=== PATIENT | female | born 1990 | race Caucasian/White ===

== ENCOUNTER 2018-01-25 10:42 | Emergency (ER) | payer OTHER ==
[~2018-01-25] VITALS: Ht 172.7 cm; Wt 90.7 kg
[~2018-01-25 10:42] MED LIST: CODGUAEL PO; Cleocin HCl150 MG PO
[2018-01-25] MEDS ORDERED: KETO10 PO (12:00)
[2018-01-25] MEDS ORDERED: Crutch1 EACH MISC (12:06)
== END 2018-01-25 12:13 | disposition home or self-care (01) ==
LOC: ER 10:42
DX: S93.401A Sprain of unspecified ligament of right ankle, initial encounter (principal); F17.200 Nicotine dependence, unspecified, uncomplicated; Z88.0 Allergy status to penicillin; X58.XXXA Exposure to other specified factors, initial encounter
CPT/HCPCS: 73630; 99283-25

== ENCOUNTER → 2022-11-10 | Outpatient (CLI) | payer OTHER ==
[~2022-11-10] MED LIST changes: +Crutch1 EACH MISC; +KETO10 PO
[2022-11-10 13:57] LABS: Candida species (DNA Probe) Negative (NEGATIVE); G. vaginalis (DNA Probe) Negative (NEGATIVE); T. vaginalis (DNA Probe) Negative (NEGATIVE)
[2022-11-11 10:10] LABS: HBSAG SCREEN Negative (Negative); HCV ANTIBODY Non Reactive (Non Reactive)
[2022-11-11 10:37] LABS: HIV AB/P24 AG SCREEN Non Reactive (Non Reactive)
[2022-11-12 07:13] LABS: CHLAMYDIA TRACHOMATIS, NAA Negative (Negative); HPV 16 Negative (Negative); HPV 18 Negative (Negative); HPV OTHER HR TYPES Negative (Negative)
== END | disposition home or self-care (01) ==
LOC: LAB SHORT 11:28 → LAB 11:28
PROVIDERS: Advanced Practice Midwife
DX: Z01.419 Encounter for gynecological examination (general) (routine) without abnormal findings (principal); Z11.3 Encounter for screening for infections with a predominantly sexual mode of transmission; N76.0 Acute vaginitis
CPT/HCPCS: 36415; 86592; 86803; 87340; 87389; 87480; 87491; 87510; 87591; 87624; 87660; G0145

== ENCOUNTER 2023-07-10 19:55 | Emergency (ER) | payer OTHER ==
[~2023-07-10] VITALS: Ht 160 cm; Wt 74.8 kg
[2023-07-10 21:32] VITALS: BP 152/103
[2023-07-10] MEDS ORDERED: Ketorolac Tromethamine 15mg Vial IM ONE (21:45)
[2023-07-10] MEDS ORDERED: Lidocaine 4% 1 Patch TOP ONE (21:45)
[2023-07-10] MEDS ORDERED: ASPERFLEX1 EACH TOP (21:46)
== END 2023-07-10 21:50 | disposition home or self-care (01) ==
LOC: ER 19:55
DX: T14.90XA Injury, unspecified, initial encounter (principal); R51.9 Headache, unspecified; M54.2 Cervicalgia; F17.200 Nicotine dependence, unspecified, uncomplicated; V43.52XA Car driver injured in collision with other type car in traffic accident, initial encounter; Z88.0 Allergy status to penicillin
CPT/HCPCS: 70450; 72125; 96372; 99284-25; A9270; J1885

== ENCOUNTER 2023-11-19 18:11 | Emergency (ER) | payer OTHER ==
[~2023-11-19] VITALS: Ht 160 cm; Wt 79.4 kg
[~2023-11-19 18:11] MED LIST changes: +ASPERFLEX1 EACH TOP
[2023-11-19 18:26] VITALS: BP 153/101
[2023-11-19 19:53] LABS: Source, Urine Clean Catch
[2023-11-19 20:00] LABS: Appearance, Urine Clear (Clear); Bilirubin, Urine Neg (Neg); Blood, Urine Neg (Neg); Glucose Qualitative, Urine Neg (Neg); Ketones, Urine Neg (Neg); Leukocyte Esterase, Urine Neg (Neg); Nitrite, Urine Neg (Neg); Protein, Urine 2+ (Neg); Specific Gravity, Urine 1.005 (1.003-1.022); Urobilinogen, Urine NORM (Normal)
[2023-11-19 20:26] LABS: Color, Urine Pale Yellow (P-Yellow)
[2023-11-19 20:57] LABS: Bacteria Few /hpf; Red Blood Cells, Urine 0-2 /hpf (0-2); Squamous Epithelial Cells Few /hpf (Few); White Blood Cells, Urine 0-2 /hpf (0-5)
== END 2023-11-19 20:44 | disposition left against medical advice (07) ==
LOC: ER 18:11
PROVIDERS: Emergency Medicine
DX: Z53.21 Procedure and treatment not carried out due to patient leaving prior to being seen by health care provider (principal)
CPT/HCPCS: 81001; 81025

== ENCOUNTER 2024-05-14 00:21 | Emergency (ER) | payer OTHER ==
[~2024-05-14] VITALS: Ht 160 cm; Wt 84.8 kg
[2024-05-14 00:53] VITALS: BP 155/111
[2024-05-14] MEDS ORDERED: Amoxicillin/Clavulanate K 875 MG Tab PO ONE (03:15)
[2024-05-14] MEDS ORDERED: AMOCLA875 PO (04:50)
[2024-05-14] MEDS ORDERED: RX Prepack 6 Tabs Oxycodone 5mg UD ONE (04:50)
[2024-05-14] MEDS ORDERED: Diphth,Pertuss(Acell),Tet Vac 0.5 ML VIAL IM ONE (05:00)
== END 2024-05-14 05:17 | disposition home or self-care (01) ==
LOC: ER 00:21
DX: S62.635B Displaced fracture of distal phalanx of left ring finger, initial encounter for open fracture (principal); F17.200 Nicotine dependence, unspecified, uncomplicated; W22.09XA Striking against other stationary object, initial encounter; Z79.899 Other long term (current) drug therapy; Z88.0 Allergy status to penicillin
CPT/HCPCS: 12002; 73130; 90471; 90715; 99283-25; A9270

== ENCOUNTER 2024-07-31 07:45 | Day surgery (SDC) | payer OTHER ==
[~2024-07-31] VITALS: Ht 160 cm; Wt 81.8 kg
[~2024-07-31 07:45] MED LIST changes: +AMOCLA875 PO; +CeFAZolin Sodium 2,000 MG VIAL ONE
[2024-07-31] MEDS ORDERED: Adipex-P37.5 M1 PO (08:23)
[2024-07-31] MEDS ORDERED: Lactated Ringer's 1,000 ML IV ONE (08:30)
[2024-07-31] MEDS ORDERED: propofoL 20 ML IV ONE (08:41)
[2024-07-31] MEDS ORDERED: FentaNYL Citrate 50 MCG/ML 2 ML Injection ONE ×2 (08:42→08:45)
[2024-07-31] MEDS ORDERED: Lidocaine HCl 2% 10 ML SDA ONE (08:59)
[2024-07-31] MEDS ORDERED: Lidocaine HCl 1% 20 ML MDV INJ ONE ×2 (09:07→09:12)
[2024-07-31] MEDS ORDERED: Ondansetron HCl 2 MG / ML 2ML Vial ONE (09:20)
[2024-07-31] MEDS ORDERED: Dexamethasone Sod Phos 10 MG/ML 1ML VIAL ONE (09:20)
[2024-07-31 09:36] VITALS: BP 136/93
--- NOTE | 2024-07-31 09:45 | NUR ---
07/31/24 0945 Janiya Damon SIGNIFICANT OTHER BROUGHT TO BEDSIDE
== END 2024-07-31 10:04 | disposition home or self-care (01) ==
LOC: ORSCSDS 07:45
PROVIDERS: Orthopaedic Surgery
PROC: 0PBV0ZX Excision of Left Finger Phalanx, Open Approach, Diagnostic (ICD-10-PCS; principal; 2024-07-31 11:15)
DX: S62.639A Displaced fracture of distal phalanx of unspecified finger, initial encounter for closed fracture (principal); F17.210 Nicotine dependence, cigarettes, uncomplicated; E66.9 Obesity, unspecified; Z68.31 Body mass index [BMI] 31.0-31.9, adult
CPT/HCPCS: J0690; J1100; J2003; J2405; J2704; J3010

== ENCOUNTER 2024-10-16 02:45 | Emergency (ER) | payer OTHER ==
[~2024-10-16] VITALS: Ht 160 cm; Wt 80.7 kg
[~2024-10-16 02:45] MED LIST changes: +Adipex-P37.5 M1 PO; -CeFAZolin Sodium 2,000 MG VIAL ONE
[2024-10-16 02:59] VITALS: BP 149/111
[2024-10-16] MEDS ORDERED: NS 1,000 ML IV SCH (03:40)
[2024-10-16] MEDS ORDERED: Morphine Sulfate 4 MG/1 ML Injection IV ONE (03:40)
[2024-10-16] MEDS ORDERED: Lidocaine 2% Viscous Soln 100 ML BTL PO ONE (04:00)
[2024-10-16] MEDS ORDERED: Lidocaine 2% Viscous Soln 15 ML UDC PO ONE (04:05)
[2024-10-16] MEDS ORDERED: Ketorolac Tromethamine 30mg Vial IV ONE (05:30)
[2024-10-16] MEDS ORDERED: CYCL10 PO (05:59)
[2024-10-16] MEDS ORDERED: Dexamethasone Sod Phos 10 MG/ML 1ML VIAL IV ONE (06:00)
== END 2024-10-16 06:17 | disposition home or self-care (01) ==
LOC: ER 02:45
DX: T71.193A Asphyxiation due to mechanical threat to breathing due to other causes, assault, initial encounter (principal); S62.666A Nondisplaced fracture of distal phalanx of right little finger, initial encounter for closed fracture; S16.1XXA Strain of muscle, fascia and tendon at neck level, initial encounter; S00.83XA Contusion of other part of head, initial encounter; F17.200 Nicotine dependence, unspecified, uncomplicated; Z88.0 Allergy status to penicillin; Z79.899 Other long term (current) drug therapy; Y04.8XXA Assault by other bodily force, initial encounter
CPT/HCPCS: 70450; 70498; 72125; 73140; 96374-59; 96375; 99284-25; A9270; J1100; J1885; J7030; Q9967

== ENCOUNTER 2024-12-11 12:50 | Day surgery (SDC) | payer OTHER ==
[~2024-12-11] VITALS: Ht 160 cm; Wt 81.5 kg
[~2024-12-11 12:50] MED LIST changes: +CYCL10 PO
[2024-12-11] MEDS ORDERED: ZOLOFT50 MG PO (13:08)
[2024-12-11] MEDS ORDERED: TRAZ50 PO (13:08)
[2024-12-11] MEDS ORDERED: ALPRAZOLAM110 PO (13:09)
[2024-12-11] MEDS ORDERED: OMEP20ER PO (13:09)
[2024-12-11] MEDS ORDERED: MONDOXYNE NL100 MG PO (13:09)
[2024-12-11] MEDS ORDERED: CeFAZolin Sodium 2,000 MG VIAL ONE ×2 (13:18→14:03)
--- NOTE | 2024-12-11 13:25 | NUR ---
12/11/24 1325 Georgina Valadez CALL LIGHT WITHIN REACH.
[2024-12-11] MEDS ORDERED: Dexamethasone Sod Phos 10 MG/ML 1ML VIAL ONE (13:32)
[2024-12-11] MEDS ORDERED: Ondansetron HCl 2 MG / ML 2ML Vial ONE (13:32)
[2024-12-11] MEDS ORDERED: FentaNYL Citrate 50 MCG/ML 2 ML Injection ONE (13:32)
[2024-12-11] MEDS ORDERED: Midazolam HCl 1MG / ML 2ML Vial ONE (13:32)
[2024-12-11] MEDS ORDERED: Ketorolac Tromethamine 30mg Vial ONE (13:33)
[2024-12-11 14:41] VITALS: BP 143/90
== END 2024-12-11 15:00 | disposition home or self-care (01) ==
LOC: ORSCSDS 12:50
PROVIDERS: Orthopaedic Surgery
PROC: 0X6V0Z3 Detachment at Right Little Finger, Low, Open Approach (ICD-10-PCS; principal; 2024-12-11 14:30)
DX: M86.141 Other acute osteomyelitis, right hand (principal); E66.9 Obesity, unspecified; Z68.31 Body mass index [BMI] 31.0-31.9, adult; F17.210 Nicotine dependence, cigarettes, uncomplicated; Z79.899 Other long term (current) drug therapy
CPT/HCPCS: 88305; 88311; J0690; J1100; J1885; J2250; J2405; J2704; J3010; J7120